=== PATIENT | female | born 1995 | race African-American/Black ===

== ENCOUNTER 2021-01-28 17:33 | Emergency (ER) | payer MEDICAID ==
[~2021-01-28] VITALS: Ht 157.5 cm; Wt 52.2 kg
--- NOTE | 2021-01-28 17:46 | NUR ---
Pt denies feeling feverish. Reports she has thrown up over 5 times since lastnight, felt weak, general malaise, nauseous. Denies cough or SOB.
--- NOTE | 2021-01-28 17:52 | NUR ---
Provided pt warm blanket.
--- NOTE | 2021-01-28 18:52 | NUR ---
Pt resting, eyes closed, breathing equal, non-labored. MD has not seen yet, orders not in yet.
--- NOTE | 2021-01-28 18:52 | NUR ---
Provided pt additional warm blanket
[2021-01-28] MEDS ORDERED: ONDANSETRON 2MG/ML, 2ML ONE (19:16)
[2021-01-28 19:27] LABS: MEAN PLATELET VOLUME 8.2 fL (7.4-10.4); PLATELET COUNT 386 x10^3/uL (130-400); RED BLOOD COUNT 5.21 x10^6/uL (3.82-5.3)
--- NOTE | 2021-01-28 19:27 | NUR ---
IV inserted, medicated per eMAR.
--- NOTE | 2021-01-28 19:28 | NUR ---
Provided pt sprite and water for PO challenge.
[2021-01-28] MEDS ORDERED: ONDANSETRON 2MG/ML, 2ML IVPush ONE (19:30)
[2021-01-28] MEDS ORDERED: SODIUM CHLORIDE 0.9% 1,000ML IVBOLUS ONE (19:30)
[2021-01-28] MEDS ORDERED: SODIUM CHLORIDE FLUSH 10ML SYR IVF ONE (19:30)
[2021-01-28 19:35] LABS: ALBUMIN 3.9 g/dL (3.4-5.0); ANION GAP 5 mmol/L (5-15); CALCIUM 9.6 mg/dL (8.5-10.1); CHLORIDE 109 mmol/L (98-107); CREATININE 0.93 mg/dL (0.55-1.02)
[2021-01-28 20:22] LABS: MD YES
[2021-01-28 20:25] LABS: ANISOCYTOSIS 1+; BAND#(MANUAL) 0.23 x10^3/uL; BANDS%(MANUAL) 2 % (0-7); LYMPH#(MANUAL) 1.14 x10^3/uL (1-3.4); LYMPHS% (MANUAL) 10 % (22-44); MONOS#(MANUAL) 0.11 x10^3/uL (0.3-2.7); MONOS% (MANUAL) 1 % (2-9); SEG#(MANUAL) 9.92 x10^3/uL (1.8-6.8); SEGS% (MANUAL) 87 % (42-75)
[2021-01-28 20:26] LABS: <PLATELET ESTIMATE> ADEQUATE; <PLT MORPHOLOGY> NORMAL PLT MORPH; HYPOCHROMIA 2+; MICROCYTOSIS 1+; OVALOCYTES 1+; POLYCHROMASIA 1+
[2021-01-28 20:38] VITALS: BP 148/97
--- NOTE | 2021-01-28 20:38 | NUR ---
NS infusion complete, PO fluid challenge passed. Pt reports she feels better.
== END 2021-01-28 21:50 | disposition home or self-care (01) ==
LOC: ED 18:03
DX: R11.2 Nausea with vomiting, unspecified (principal); R19.7 Diarrhea, unspecified; R10.13 Epigastric pain
CPT/HCPCS: 36415; 80048; 82040; 84703; 85025; 96361; 96374; 99283; J2405; J7030

== ENCOUNTER 2021-07-28 09:56 | Emergency (ER) | payer MEDICAID ==
[~2021-07-28] VITALS: Ht 160 cm; Wt 55.7 kg
--- NOTE | 2021-07-28 10:19 | NUR ---
PT AMBULATORY TO ROOM 37 W/ C/O VB LIGHT PINK/RED STARTED THIS AM AFTER PT HAD SEXUAL INTERCOURSE. PT STATES SHE HAD HER LMP 07/15. PT DENIES ANY FORMS OF HORMONAL MEDICATION. PT RESTING ON GURNEY. NADN. MONITORS APPLIED. VSS. WARM BLANKET PROVIDED. CALL LIGHT IN REACH.
[2021-07-28 11:17] LABS: MICROSCOPIC INDICATED
--- NOTE | 2021-07-28 11:27 | NUR ---
PT RESTING ON DEJA. NADN. MCKAYS. PT TAKEN TO US IN STABLE CONDITION.
[2021-07-28 12:00] LABS: BASOPHILS % (AUTO) 1 % (0-1); EOSINOPHILS % (AUTO) 2 % (1-7); LYMPHOCYTES % (AUTO) 21 % (22-44); MEAN CORPUSCULAR HEMOGLOBIN 26.4 pg (27.0-34.8); MEAN CORPUSCULAR HGB CONC 33.2 g/dL (32.4-35.8); MEAN PLATELET VOLUME 7.7 fL (7.4-10.4); MONOCYTES % (AUTO) 6 % (2-9); NEUTROPHILS % (AUTO) 71 % (42-75); PLATELET COUNT 325 x10^3/uL (130-400); RED BLOOD COUNT 5.07 x10^6/uL (3.82-5.3); RED CELL DISTRIBUTION WIDTH 15.5 % (9.6-15.2)
[2021-07-28 12:15] LABS: ALANINE AMINOTRANSFERASE 22 U/L (12-78); ALBUMIN 3.6 g/dL (3.4-5.0); CREATININE 0.79 mg/dL (0.55-1.02)
[2021-07-28 12:19] LABS: ALKALINE PHOSPHATASE 93 U/L (45-117); BILIRUBIN,TOTAL 0.6 mg/dL (0.2-1.0); TOTAL PROTEIN 7.8 g/dL (6.4-8.2)
[2021-07-28 12:20] LABS: ANION GAP 6 mmol/L (5-15); CHLORIDE 106 mmol/L (98-107)
[2021-07-28 12:47] VITALS: BP 119/80
--- NOTE | 2021-07-28 12:47 | NUR ---
PT RESTING ON GURNEY. NADN. SAUL.
--- NOTE | 2021-07-28 12:53 | NUR ---
PT CHART REVIEWED AND PLACED FOR RECHECK.
== END 2021-07-28 13:08 | disposition home or self-care (01) ==
LOC: ED 13:05
DX: O20.0 Threatened abortion (principal); Z3A.01 Less than 8 weeks gestation of pregnancy
CPT/HCPCS: 36415; 76830; 80053; 81001; 84702; 84703; 85025; 86901; 99284

== ENCOUNTER 2021-07-30 16:52 | Emergency (ER) | payer MEDICAID ==
[~2021-07-30] VITALS: Ht 160 cm; Wt 56.0 kg
[2021-07-30 17:12] VITALS: BP 127/82
--- NOTE | 2021-07-30 17:47 | NUR ---
[employer] assistant: Pt ambulatory to room from lobby at this time.
--- NOTE | 2021-07-30 17:59 | NUR ---
AWAITING LAB DRAW/RESULT. CALL LIGHT WITHIN REACH.
--- NOTE | 2021-07-30 18:39 | NUR ---
LAB RESULT BACK, PT FOR RECHECK.
== END 2021-07-30 19:03 | disposition home or self-care (01) ==
LOC: ED 17:00
DX: O03.9 Complete or unspecified spontaneous abortion without complication (principal)
CPT/HCPCS: 36415; 84702; 99283; 99284